=== PATIENT | male | born 1990 | race Caucasian/White ===

== ENCOUNTER 2021-02-23 21:29 | Emergency (ER) | payer OTHER ==
[~2021-02-23 21:29] MED LIST: FLEXERIL 10 MG10 MG PO; IBUPROFEN800 MG PO
[2021-02-23 22:04] LABS: HEMOGLOBIN 15.2 gm/dl (14.0-17.5); RED BLOOD COUNT 5.25 M/UL (4.20-5.50)
[2021-02-23 22:23] LABS: BUN/CREATININE RATIO 11 (0-10)
[2021-02-24] MEDS ORDERED: FLOMAX0.4 MG PO (00:03)
[2021-02-24] MEDS ORDERED: TORADOL 10 MG T10 MG PO (00:03)
[2021-02-24] MEDS ORDERED: ZOFRAN4 MG PO (00:03)
== END 2021-02-24 00:14 | disposition home or self-care (01) ==
LOC: ER1 21:29
PROVIDERS: Physician Assistant
DX: N13.2 Hydronephrosis with renal and ureteral calculous obstruction (principal)
CPT/HCPCS: 80053; 81001; 83690; 85025; 87086; 96374; 96375; 99284; J1885; J2405; Q9967